=== PATIENT | female | born 1980 | race Caucasian/White ===

== ENCOUNTER 2020-10-12 17:15 | Emergency (ER) | payer MEDICARE, SELFPAY | END 2020-10-12 19:43 | disposition left against medical advice (07) | LOC: HO.ED 19:44 | PROVIDERS: Emergency Provider Emergency Medicine; PCP Nurse Practitioner Family | DX: N39.0 Urinary tract infection, site not specified (principal) ==

== ENCOUNTER 2024-11-01 14:31 | Emergency (ER) | payer OTHER, SELFPAY ==
[2024-11-01 14:40] VITALS: BP 105/79; BP 120/78; PULSE 77; PULSE 83; RESP 18; TEMP 36.6; O2SAT 100; BMI 41.0
--- NOTE | 2024-11-01 14:41 | ED_ITS ---
HPI - General Adult General Chief complaint: Allergic Reaction Stated complaint: ?ALLERGIC REACTION Time Seen by Provider: 11/01/24 14:41 History of Present Illness ED Provider: Olesya BARNES narrative: The patient is a 44-year-old woman who says that she woke up this morning with swelling and redness to the skin of her face. It is also very itchy. The patient says that she had a similar event 2 weeks ago. She happened to have a primary care doctor visit on the same day that she experienced these symptoms previously. She was treated with doxycycline and prednisone and improved. Her symptoms had completely resolved before they returned suddenly this morning for no apparent reason. She denies any new medications. She denies any new skin products or other household products that she might have been exposed to. She has no sense of intraoral swelling. No difficulty swallowing. No change in her voice. No shortness of breath. She does not feel that the redness or itchiness is present on any other part of her body except for the face. The patient later said that she had started a new medication, upadacitinib (Rinvoq) 3 days ago. Related Data Previous Rx's ?Medication ?Instructions ?Recorded famotidine 40 mg tablet 40 mg PO DAILY #10 tabs 11/01/24 loratadine 10 mg tablet 10 mg PO DAILY PRN allergic 11/01/24 symptoms #10 tabs lorazepam 1 mg tablet 1 mg PO BEDTIME PRN agitation #5 11/01/24 tabs prednisone 5 mg tablet 5 mg PO DIRECTED #78 tabs 11/01/24 Allergies Allergy/AdvReac Type Severity Reaction Status Date / Time latex [LATEX] Allergy Unknown UNKNOWN Verified 11/01/24 14:57 naproxen [NAPROXEN] Allergy Unknown NAUSEA & Verified 11/01/24 14:57 VOMITING SEAFOOD Allergy Unknown SWELLING Uncoded 11/01/24 14:57 Review of Systems 2 Review of Systems: Yes all other systems are reviewed and are negative PMFSH Social History Social History Advance Directives: No Advance Directives Information Provided: Yes Physical Exam ED Vital Signs: Vital Signs - 24 hr 11/01/24 14:40 11/01/24 15:06 11/01/24 16:37 Temperature 97.9 F 98.2 F Pulse Rate 77 65 68 Respiratory Rate 18 20 Blood Pressure 105/79 105/79 120/64 Pulse Oximetry 100 99 Oxygen Delivery Method Room Air Room Air BMI result Body Mass Index 41.0 Const Other: The patient is awake and alert. Her face is diffusely red and puffy. She seems somewhat uncomfortable and itchy. She has a normal mental status and does not seem in any respiratory difficulty. HENMT Other: The skin of the face is diffusely red and mildly puffy. There is no intraoral swelling. No swelling of the posterior pharynx. Airway looks clear. Eyes Other: There is some mild edema to the eyelids generally. The eyes themselves are unremarkable. Pupils are round equal, conjunctivae are clear, extraocular movements intact. Neck Other: There is no redness of the neck. No swelling to the neck. No stridor. She is moving her neck easily. Resp Effort & Inspection: normal respiratory effort Auscultation: clear to auscultation bilaterally Cardio Rate: regular rate Rhythm: regular rhythm Heart sounds: S1 normal heart sound present and S2 normal heart sound present Skin Other: There is a lot of diffuse redness to the skin of the face. The redness seems confined to the face. the skin of the remainder of the body is unremarkable. Neuro Other: The patient is awake and alert with a normal mental status. The face has diffuse redness and mild diffuse swelling but there was no facial asymmetry. Speech is clear. Eye movements are normal. She moves her extremities normally. She seems neurologically intact. Extrem Other: No swelling to the extremities Medications Administered Discontinued Medications Generic Name Dose Route Start Last Admin Trade Name Darrylq PRN Reason Stop Dose Admin Acetaminophen 975 mg 11/01/24 16:18 11/01/24 16:25 Acetaminophen 325 Mg Tablet PO 11/01/24 16:19 975 mg ONCE ONE Administration Diphenhydramine HCl 25 mg 11/01/24 15:55 11/01/24 16:04 Diphenhydramine Hcl 25 Mg Capsule PO 11/01/24 15:56 25 mg ONCE ONE Administration Epinephrine 0.3 mg 11/01/24 14:51 11/01/24 15:06 Epinephrine 1 Mg/Ml Vial IM 11/01/24 14:52 0.3 mg STAT STA Administration Famotidine 20 mg 11/01/24 15:55 11/01/24 16:04 Famotidine 20 Mg Tablet PO 11/01/24 15:56 20 mg ONCE ONE Administration Loratadine 10 mg 11/01/24 15:55 11/01/24 16:04 Loratadine 10 Mg Tablet PO 11/01/24 15:56 10 mg ONCE ONE Administration Prednisone 60 mg 11/01/24 15:55 11/01/24 16:03 Prednisone 20 Mg Tablet PO 11/01/24 15:56 60 mg ONCE ONE Administration Medical Decision Making Medical Decision Making [facility] Narrative: The patient is a 44-year-old woman who presents with the acute facial redness and itchiness that started this morning. She says that she had a similar episode 2 weeks ago and she was seen at her PCP's office. She was prescribed doxycycline and prednisone with improvement in her symptoms. She has also seen a biometrics specialist recently and was prescribed Rinvoq. She started this medicine 3 days ago. She had not taken this medication on the previous episode 2 weeks ago. I think her presentation today is most consistent with a an allergic phenomenon. She was given a trial of an IM dose of epinephrine but this did not seem to have much benefit. Given the itchiness component I think it is much more likely that this is an allergic reaction rather than an infection. I do not think there is necessarily a role for antibiotics. She will be discharged with a prescription for a long slow tapering dose of prednisone over 12 days. She will also be given prescriptions for loratadine and famotidine. She should take these daily. Also a small prescription for lorazepam for use at night if necessary for sleep. She should follow up with her biometrics specialist, Dr. Milton, and also with her PCP. If worse she should return to the emergency room. Discharge Plan Discharge Clinical Impression: Allergic reaction Patient Disposition: Home, Self-Care Additional Instructions: I have sent four prescriptions to the pharmacy. Please take the prednisone once a day. The prednisone dosing will be what we call a tapering dose. Tomorrow take 12 tablets, 5 mg each for a total of 60 mg. The next day take 11 tablets for 55 mg. The next day take 10 tablets. Continue to take 1 tablet less per day until done. You should also take loratadine once a day (this is an antihistamine). You should also take famotidine once a day ( this is a different kind of antihistamine ). I have also sent a prescription for lorazepam ( Ativan ) which you may use at bedtime if the itchiness prevents you from sleeping. This medication can make you drowsy. No driving on this medication. You may also take occasional [id number] Benadryl (diphenhydramine) if the itching is very severe. I would hold the Rinvoq while you are taking the prednisone and until you follow up with your biometrics specialist to discuss this further. Please call your dermatology office tomorrow morning to try to get a prompt follow up appointment for re-evaluation. Also contact your regular doctor's office in case you have any delay in getting into see your biometrics specialist again. Return to the emergency room if significantly worse. Prescriptions: New prednisone 5 mg tablet 5 mg PO DIRECTED Qty: 78 0RF Rx Instructions: take 12 tablets by mouth daily for 1 day, then take 11 tablets daily by mouth for 1 day, then take 10 tablets daily by mouth for 1 day, continue to take 1 tablet less per day until done. loratadine 10 mg tablet 10 mg PO DAILY PRN (Reason: allergic symptoms) Qty: 10 0RF famotidine 40 mg tablet 40 mg PO DAILY Qty: 10 0RF lorazepam 1 mg tablet 1 mg PO BEDTIME PRN (Reason: agitation) Qty: 5 0RF Referrals: Jose Milton MD [Physician] - ( facial allergic reaction) Yazmin Sommer NP [Primary Care Provider] - ( facial redness and swelling, presumably allergic reaction) Interventions: ED Discharge Assessment Last Done: 11/01/24 17:20 Print Language: Citizen Of [place]
[2024-11-01 15:06] VITALS: BP 105/79; PULSE 65
[2024-11-01] MEDS: EPINEPHrine 1 MG/ML VIAL 0.3 MG IM (15:06)
--- NOTE | 2024-11-01 15:15 | PC.NURSE ---
Patient notified this RN & Dr. Dacosta that she started a new medication 3 days ago, Rinvoq. at bedside. Given Epi 0.3mg to left deltoid. Placed on lead quality control technician, vitals stable. No acute distress.
[2024-11-01] MEDS: predniSONE 20 MG TABLET 60 MG PO (16:03)
[2024-11-01] MEDS: Famotidine 20 MG TABLET PO (16:04)
[2024-11-01] MEDS: Loratadine 10 MG TABLET PO (16:04)
[2024-11-01] MEDS: diphenhydrAMINE HCL 25 MG CAPSULE PO (16:04)
[2024-11-01] MEDS: Acetaminophen 325 MG TABLET 975 MG PO (16:25)
[2024-11-01 16:37] VITALS: BP 120/64; PULSE 68; RESP 20; TEMP 36.8; O2SAT 99
[2024-11-01 17:20] VITALS: BP 120/64; PULSE 68; RESP 20; TEMP 36.8; O2SAT 99
== END 2024-11-01 17:21 | disposition home or self-care (01) ==
PROVIDERS: Emergency Provider Emergency Medicine; PCP Nurse Practitioner Family
DX: L50.0 Allergic urticaria (principal)
CPT/HCPCS: 96372; 99284; J0171

== ENCOUNTER 2025-02-05 22:57 | Emergency (ER) | payer OTHER, SELFPAY ==
--- NOTE | 2025-02-05 | ECG_ITS ---
Test Reason : DIZZINESS Blood Pressure : */* mmHG Vent. Rate : 76 BPM Atrial Rate : 76 BPM P-R Int : 130 ms QRS Dur : 88 ms QT Int : 378 ms P-R-T Axes : 31 12 36 degrees QTcB Int : 425 ms Normal sinus rhythm Normal ECG No previous ECGs available Referred By: Generic ED Physician Electronically Signed By: JONNY CAMPOS
[2025-02-05 23:03] VITALS: BP 140/86; PULSE 84; O2SAT 97
[2025-02-05 23:11] VITALS: BP 120/70; PULSE 75; RESP 16; TEMP 36.9; O2SAT 96
[2025-02-05 23:13] VITALS: BMI 44.0
[2025-02-05 23:35] LABS: MANUAL DIFF FLAG NO
--- OUTSIDE RECORDS SUMMARY | 2025-02-05 23:36 | XMS_ITS | Clinical Summary ---
Author Organization [facility] Address [address] [place] [address] Phone Care Team Providers Care Billboard Installer Name Role Phone Srikanth Patel MD Primary Care Provider [phone] Allergies Active Allergy Reactions Criticality Noted Date Comments Latex 09/22/2024 Shellfish Derived 09/22/2024 Medications No known medications Surgical History Surgery Date Site/Laterality Comments SECTION 2014 PROCEDURE: [place] DELIV[place] ONLY Medical History Medical History Date Comments Asthma DX:Asthma; COMME NT: since young Eczema DX:Eczema; COMME NT: since young Family History Medical History Relation Name Comments Depression Mother Diabetes Mother Hypertension Mother Other: no CAD Other 1 Other: no CVA Other 2 Lung cancer Paternal Grandmother smoker Relation Name Status Comments Mother Other 1 Other 2 Paternal Grandmother Social History Tobacco Use Types Packs/Day Years Used Date Smoking Tobacco: Every Day Cigarettes Smokeless Tobacco: Never Alcohol Use Standard Drinks/Week Comments No 0 (1 standard drink = 0.6 oz pur e alcohol) Comments Unknown Sex and Gender Information Value Date Recorded Sex Assigned at Female 09/22/2024 10:49 PM EST Legal Sex Female 4:55 AM EST Gender Identity Female 09/22/2024 10:49 PM EST Sexual Orientation Choose not to disclose 2024 10:49 PM EST Obstetrics History Last Filed Vital Signs Vital Sign Reading Time Taken Comments Blood Pressure 116/70 09/23/2024 12:52 AM EST Pulse 75 09/23/2024 12:52 AM EST Temperature 37.1 ??C (98.8 ??F) 09/23/2024 12:[address] Respiratory Rate 18 09/23/2024 12:52 AM EST Oxygen Saturation 100% 09/23/2024 12:52 AM EST Inhaled Oxygen Concentration - - Weight 89.4 kg (197 lb) 09/22/2024 6:12 PM EST Height 149.9 cm (4' 11 ) 09/22/2024 6:12 PM EST Body Mass Index 39.79 09/22/2024 6:12 PM EST Plan of Treatment Health Maintenance Due Date Last Done Comments Breast Cancer Screening 1979 Hepatitis B Vaccines (1 of 3 - 19+ 3-dose series) 1998 Pneumococcal Vaccine: Pediatrics (0 to 5 Years) and At-Risk Patients (6 to 64 Years) (1 of 2 - PCV) 1998 Cholesterol Screening (Lipid Panel) 08/05/2022 Colorectal Cancer Screening: Colonoscopy 08/05/2022 Depression Screening 08/05/2022 HIV Screening 08/05/2022 Hepatitis C Screening 08/05/2022 Medicare Annual Wellness Visit 08/05/2022 Social Influencers of Health Screening 08/05/2022 Cervical Cancer Screening: Pap Smear 03/18/2023 03/18/2020 COVID-19 Vaccine ( season) 2024 Influenza Vaccine (Season Ended) 2025 08/21/2023, 06/28/2020, 06/18/2019, Additional history exists DTaP,Tdap,and Td Vaccines (5 - Td or Tdap) 02/22/2030 02/23/2020, 02/21/2018, 03/15/2015, Additional history exists HIB Vaccines Aged Out No longer eligi ble based on patient's age to complete this topic HPV Vaccines Aged Out No longer eligi ble based on patient's age to complete this topic Hepatitis A Vaccines Aged Out No long er eligible based on patient's age to complete this topic IPV Vaccines Aged Out No longer eligi ble based on patient's age to complete this topic MMR Vaccines Aged Out No longer eligi ble based on patient's age to complete this topic Meningococcal ACWY Vaccine Aged Out N o longer eligible based on patient's age to complete this topic Meningococcal B Vaccine Aged Out No l onger eligible based on patient's age to complete this topic RSV Immunization Patients Under 20 months Aged Out No longer eligible based on patient's age to complete this topic Varicella Vaccines Aged Out No longer eligible based on patient's age to complete this topic Procedures Procedure Name Priority Date/Time Associated Diagnosis Comments PAP SMEAR Routine 03/18/2020 from Last 3 Months or Most Recently Relevant to Health Maintenance Results * Pap smear (03/18/2020) 03/18/2020 Narrative HISTORICAL TESTING LAB RESULTING AGENCY - 03/24/2020 11:46 AM EDT [id number] THINPREP PAP, IMAGED: ATYPICAL SQUAMOUS CELLS OF UNDETERMINED SIGNIFICANCE (ASCUS) . ABUNDANT BLOOD PRESENT. ARNOL VARGAS(ASCP) (CASE SCREENED 03 22 2020) KACIE ABRAMS M.D. , PATHOLOGIST (CASE ELECTRONICALLY SIGNED 03 23 2020) RESULT OF APTIMA HIGH RISK HPV ASSAY: HIGH RISK HPV: ??NEGATIVE (SEROTYPES 16,18,31,33,35,39,45,51,52,56,58,59,66,68) COMPLETED ON 2020-03-21 ADEQUACY: SATISFACTORY ENDOCERVICAL/TRANSFORMATION ZONE COMPONENT PRESENT. SOURCE: THINPREP PAP HPV ANY DX: ??REFLEX 16 AND 18, CERVICAL, IMAGED CLINICAL INFORMATION: HPV ANY DIAGNOSIS. HORMONES, PAP HX NEG, Z12.4 Brenda DANG LAB CYTOLOGY ORDERABLES Final R esult HISTORICAL TESTING LAB RESULTING AGENCY from Last 3 Months or Most Recently Relevant to Health Maintenance Insurance [facility] MEDICARE Member Subscriber Plan / Payer (Ef fective 2021-Present) Name:Mauricio Carson Relation to Subscriber:Self Name:Mauricio Carson Payer ID:[id number] Group ID:[id number] Type:Not on file Address: [address] [place] [address] Care Teams Billboard Installer Relationship Specialty Start Date End Date Srikanth Patel MD [address] [place] [address], [phone] PCP - General 07/31/23
[2025-02-05 23:37] LABS: Basophils Absolute Auto 0.1 X10*3/uL (0.0-0.2); Basophils Percent Auto 0.7 % (0-2); Eosinophils Absolute Auto 0.2 X10*3/uL (0.0-0.4); Eosinophils Percent Auto 2.5 % (0-4); Hematocrit 38.4 % (37.0-47.0); Hemoglobin 13.3 g/dl (12.0-16.0); Imm Gran Abs Auto 0.15 X10*3/uL (0.00-0.03); Lymphocytes Absolute Auto 3.1 X10*3/uL (1.2-4.9); Lymphocytes Percent Auto 40.9 % (20-40); Mean Corpuscular HGB Conc 34.6 g/dl (31.0-35.0); Mean Corpuscular Hemoglobin 28.9 pg (27.0-33.0); Mean Corpuscular Volume 83.3 fL (80.0-98.0); Mean Platelet Volume 8.6 fL (9.4-12.3); Monocytes Absolute Auto 0.7 X10*3/uL (0.1-1.2); Monocytes Percent Auto 9.1 % (2-11); Neutrophils Absolute Auto 3.4 x10*3/uL (2.0-8.3); Neutrophils Percent Auto 44.8 % (45-73); Platelet Count 329 X10*3/uL (160-400); Red Blood Count 4.61 X10*6/uL (4.20-5.50); Red Cell Distribution Width 13.3 % (11.0-16.0); White Blood Count 7.5 X10*3/uL (4.8-10.8)
[2025-02-06 00:03] LABS: Albumin Level 4.6 g/dL (3.5-5.0); Alkaline Phosphatase 65 U/L (39-117); Anion Gap 12 (12-20); Aspartate Amino Transferase 35 U/L (5-31); Blood Urea Nitrogen 17 mg/dL (9-16); Calcium 9.6 mg/dL (8.4-10.2); Carbon Dioxide 25 mmol/L (22-29); Chloride 107 mmol/L (96-108); Estimated Glomerular Filt Rate 53; Glucose Random 90 mg/dL (60-115); Potassium 3.9 mmol/L (3.3-5.1); Sodium 140 mmol/L (135-145); Total Protein 7.2 g/dL (6.5-8.0); Troponin-I High Sensitivity < 2.7 ng/L (<3.5-17.0)
[2025-02-06 00:22] LABS: Alanine Aminotransferase 56 U/L (0-31); Bilirubin Total 0.5 mg/dL (0.0-1.0)
[2025-02-06 00:38] VITALS: BP 114/72; BP 94/60; PULSE 68; PULSE 80
[2025-02-06 00:39] VITALS: BP 95/64; PULSE 83
[2025-02-06 02:32] VITALS: BP 109/58; PULSE 65; RESP 16; TEMP 36.1; O2SAT 97
[2025-02-06 03:14] LABS: Appearance Urine Hazy; Color Urine Yellow; Glucose Urine UA Negative (Negative); Leukocyte Esterase Urine Negative (Negative); Nitrite Urine Negative (Negative); Specific Gravity - Urine >= 1.030 (1.005-1.025); Urine Blood Negative (Negative); Urine Ketones Negative (Negative); Urine Protein Trace mg/dL (Neg-Trace)
[2025-02-06 03:17] LABS: UPreg QC Valid YES; Urine Pregnancy NEGATIVE (NEGATIVE)
[2025-02-06 04:10] LABS: Bacteria Urine 1+ (None Seen); Hyaline Casts Urine 0-2 /LPF (0-2); RBC Urine 0-2 /HPF (0-2); WBC Urine 0-5 /HPF (0-5)
== END 2025-02-06 03:32 | disposition left against medical advice (07) ==
PROVIDERS: Emergency Provider Internal Medicine
DX: R42 Dizziness and giddiness (principal); R11.0 Nausea; Z79.899 Other long term (current) drug therapy
CPT/HCPCS: 36415; 80053; 81001; 81025; 84484; 85025; 93005; 99283; 99284

== ENCOUNTER → 2025-02-05 23:19 | Outpatient (BNV) | payer OTHER, SELFPAY | PROVIDERS: Emergency Provider Internal Medicine; Visit Provider Internal Medicine | DX: R42 Dizziness and giddiness (principal) | CPT/HCPCS: 93010 ==

== ENCOUNTER 2025-06-21 03:03 | Emergency (ER) | payer OTHER, SELFPAY ==
--- OUTSIDE RECORDS SUMMARY | 2024-11-09 09:00 | XMS_ITS ---
Author Organization [facility] Address [address] [place] [address] Care Team Providers Care Religious Healer Name Role Phone ZZArchive - DO NOT USE, Housing Application Prim lindsay Care Provider Unavailable Vicki Pichardo Unavailable [phone] Encounters Encounter Location Date Provider Diagnosis [facility] [address] [place] [phone] 11/09/2024 Vicki Pichardo Plan Of Treatment No Information Progress Notes * Mauricio CARSONDOB:1979 (45 yo F)Acc No.[id number]:11/09/2024 Case Management Patient: Kamaljit ANAHY Mauricio Provider: Celi Pichardo :1980 A ge:44 Y S ex:Female Date:11/09/2024 Address:[address] [place], [place] [phone] Pcp:Housing Application ZZAr chive - DO NOT USE Subjective: * Chief Complaints: * * Medical History: Objective: Assessment: Plan: * Treatment: * Images: Billing Information: * Visit Code: * Procedure Codes: Care Plan Details* * Electronic signature of Hector Pichardo on 06/21/2025 at 04:04 AM EDT Sign off status: Pending * Provider: Celi Pichardo Date: 0 11/09/2024 Generated for Joel appiah/Jono/Bradley on: 1 04:04 AM EDT
--- OUTSIDE RECORDS SUMMARY | 2025-02-09 06:00 | XMS_ITS ---
Author Organization [facility] Address [address] [place] [address] Care Team Providers Care Plastic Sheets Supervisor Name Role Phone ZZArchive - DO NOT USE, Housing Application Prim lindsay Care Provider Unavailable Vicki Pichardo Unavailable Encounters Encounter Location Date Provider Diagnosis [facility] [address] [place] [phone] 02/09/2025 Vicki Pichardo Plan Of Treatment No Information Progress Notes * Mauricio CARSONDOB:1979 (45 yo F)Acc No.[id number]:02/09/2025 Case Management Patient: Kamaljit ANAHY Mauricio Provider: Celi Pichardo :1980 A ge:44 Y S ex:Female Date:02/09/2025 Address:[address] [place], [place] [phone] Pcp:Housing Application ZZAr chive - DO NOT USE Subjective: * Chief Complaints: * * Medical History: Objective: Assessment: Plan: * Treatment: * Images: Billing Information: * Visit Code: * Procedure Codes: Care Plan Details* * Electronic signature of Hector Pichardo on 06/21/2025 at 04:04 AM EDT Sign off status: Pending * Provider: Celi Pichardo Date: 0 02/09/2025 Generated for Joel appiah/Jono/Bradley on: 04:04 AM EDT
--- NOTE | ~2025-06-21 | XR_ITS ---
EXAMINATION: XR KNEE, RIGHT CLINICAL INFORMATION: acute knee pain COMPARISON: None available. TECHNIQUE: Four views of the right knee. FINDINGS: The tricompartment joint space is maintained normal. No bony erosive changes, loose bodies or joint effusion seen. No visible acute fracture or dislocation. XR/XR knee RT 4V IMPRESSION: Unremarkable right knee exam. Electronically signed by: Mark Mcclendon MD 06/21/2025 05:36 AM EDT
[2025-06-21 03:06] VITALS: BP 116/74; PULSE 90; O2SAT 98
[2025-06-21 03:07] VITALS: BP 124/63; PULSE 88; RESP 18; TEMP 36.8; O2SAT 99; BMI 45.6
[2025-06-21 03:43] LABS: MANUAL DIFF FLAG NO
[2025-06-21 03:44] LABS: Hematocrit 41.5 % (37.0-47.0); Hemoglobin 13.8 g/dl (12.0-16.0); Imm Gran Abs Auto 0.12 X10*3/uL (0.00-0.03); Imm Gran Pct Auto 1.1 % (0.0-0.4); Lymphocytes Absolute Auto 2.4 X10*3/uL (1.2-4.9); Mean Corpuscular HGB Conc 33.3 g/dl (31.0-35.0); Mean Corpuscular Hemoglobin 28.5 pg (27.0-33.0); Mean Corpuscular Volume 85.7 fL (80.0-98.0); NRBC Abs Auto 0.000 X10*3/uL (0.0-0.012); NRBC Pct Auto 0.0 /100WBC (0.0-0.2); Platelet Count 332 X10*3/uL (160-400); Red Blood Count 4.84 X10*6/uL (4.20-5.50); White Blood Count 11.3 X10*3/uL (4.8-10.8)
[2025-06-21 04:04] LABS: COVID-19 Test Negative (Negative); IDNOW Serial# 152EDE1D; IDNOW Serial# 16C4AD1C; Influenza B2 Negative (Negative)
--- OUTSIDE RECORDS SUMMARY | 2025-06-21 04:04 | XMS_ITS | Clinical Summary ---
Author Organization [facility] Address [address] [place] [address] Care Team Providers Care Human Resources District Manager Name Role Phone Unavailable Primary Care Provider Unavailabl e Social History Tobacco Use Types Packs/Day Years Used Date Smoking Tobacco: Never Assessed Sex and Gender Information Value Date Recorded Sex Assigned at Not on file Gender Identity Not on file Sexual Orientation Not on file Job Start Date Occupation Industry Not on file Not on file Not on file Plan of Treatment Not on file
--- OUTSIDE RECORDS SUMMARY | 2025-06-21 04:04 | XMS_ITS | Clinical Summary ---
Author Organization [facility] Address [address] [place] [address] Phone Care Team Providers Care Long Chain Quiller Tender Name Role Phone Srikanth Patel MD Primary Care Provider [phone] Allergies Active Allergy Reactions Criticality Noted Date Comments Latex 09/22/2024 Shellfish Derived 09/22/2024 Medications No known medications Surgical History Surgery Date Site/Laterality Comments SECTION 2014 PROCEDURE: [place] DELIVERY ONLY Medical History Medical History Date [...] 74 09/23/2024 12:52 AM EST Temperature 37.1 C (98.8 F) 09/23/2024 12:52 AM EST Respiratory Rate 18 09/23/2024 12:52 AM EST Oxygen Saturation 100% 09/23/2024 12:52 AM EST Inhaled Oxygen Concentration - - Weight 89.4 kg (197 lb) 09/22/2024 6:12 PM EST Height 149.9 cm (4' 11 ) 09/22/2024 6:12 PM EST Body Mass Index 39.79 09/22/2024 6:12 PM EST Plan of Treatment Health Maintenance Due Date Last Done Comments Breast Cancer Screening 1979 Colorectal Cancer Screening: Colonoscopy 1979 Hepatitis B Vaccines (1 of 3 - 19+ 3-dose series) 1998 Pneumococcal Vaccine: Pediatrics (0 to 5 Years) and At-Risk Patients (6 to 49 Years) (1 of 2 - PCV) 1998 Cholesterol Screening (Lipid Panel) 08/05/2022 HIV Screening 08/05/2022 Hepatitis C Screening 08/05/2022 Medicare Annual Wellness Visit 08/05/2022 Social Influencers of Health Screening 08/05/2022 Cervical Cancer Screening: Pap Smear 03/18/2023 03/18/2020 Depression Screening 09/02/2024 COVID-19 Vaccine ( season) 2025 Influenza Vaccine (#1) 2025 3, 06/28/2020, 06/18/2019, Additional history exists DTaP,Tdap,and Td Vaccines (5 - Td or Tdap) 02/22/2030 02/23/2020, 02/21/2018, 03/15/2015, Additional history exists RSV Immunization Adult Patients (1 - 1-dose 75+ series) 2054 HIB Vaccines Aged Out No longer eligi [...] RESULTING AGENCY - 03/24/2020 11:46 AM EDT [id number] THINPREP PAP, IMAGED: ATYPICAL SQUAMOUS CELLS OF UNDETERMINED SIGNIFICANCE (ASCUS) . ABUNDANT BLOOD PRESENT. ARNOL VARGAS(ASCP) (CASE SCREENED 03 22 2020) KACIE ABRAMS M.D. , PATHOLOGIST (CASE ELECTRONICALLY SIGNED 03 23 2020) RESULT OF APTIMA HIGH RISK HPV ASSAY: HIGH RISK HPV: NEGATIVE (SEROTYPES 16,18,31,33,35,39,45,51,52,56,58,59,66,68) COMPLETED ON 2020-03-21 ADEQUACY: SATISFACTORY ENDOCERVICAL/TRANSFORMATION ZONE COMPONENT PRESENT. SOURCE: THINPREP PAP HPV ANY DX: REFLEX 16 AND 18, CERVICAL, IMAGED CLINICAL INFORMATION: HPV ANY DIAGNOSIS. HORMONES, PAP HX NEG, Z12.4 Brenda DANG LAB CYTOLOGY ORDERABLES Final R esult HISTORICAL TESTING LAB RESULTING AGENCY from Last 3 Months or Most Recently Relevant to Health Maintenance Insurance [facility] MEDICARE Member Subscriber Plan / Payer (Ef fective 2021-Present) Name:Mauricio Carson Relation to Subscriber:Self Name:Mauricio Carson Payer ID:[id number] Group ID:[id number] Type:Not on file Address: [address] [place] [address] Care Teams Long Chain Quiller Tender Relationship Specialty Start Date End Date Srikanth Patel MD [address] [place] [address], [phone] PCP - General 07/31/23
--- OUTSIDE RECORDS SUMMARY | 2025-06-21 04:04 | XMS_ITS | Patient Health Record ---
Author Organization [facility] Address [address] [place] [address] Care Team Providers Care Burn Out Scarfing Operator Name Role Phone ZZArchive - DO NOT USE, Housing Application Prim pingree Care Provider Unavailable Vicki Pichardo Unavailable Reason For Referral No Information Encounters Encounter Location Date Provider Diagnosis [facility] [address] [place] [phone] 11/06/2024 Vicki Pichardo [facility] [address] [place] [phone] 02/01/2025 Vicki Pichardo Plan Of Treatment No Information Insurance Providers Payer Name Payer Address Payer Phone Subscriber Number Group Number Insured Name Patient Relationship to Insured Coverage Start Date Coverage End Date [facility] [address] [place] [phone] [id number] Mauricio Melvin Self - patient is the insured 5 [phone]
[2025-06-21 04:11] LABS: Alanine Aminotransferase 49 U/L (0-31); Albumin Level 4.4 g/dL (3.5-5.0); Alkaline Phosphatase 66 U/L (39-117); Anion Gap 15 (12-20); Aspartate Amino Transferase 30 U/L (5-31); Blood Urea Nitrogen 13 mg/dL (9-16); Calcium 8.7 mg/dL (8.4-10.2); Carbon Dioxide 19 mmol/L (22-29); Chloride 110 mmol/L (96-108); Creatinine Clr Calc Pharmacy 132.5; Estimated Glomerular Filt Rate > 60; Potassium 3.9 mmol/L (3.3-5.1); Sodium 140 mmol/L (135-145); Total Protein 6.9 g/dL (6.5-8.0)
--- NOTE | 2025-06-21 05:32 | ED.EXTPRO ---
HPI - Extremity Problem General Chief complaint: Extremity Problem Stated complaint: R knee pain Time Seen by Provider: 06/21/25 03:22 Source: patient, family and EMS Mode of arrival: EMS Limitations: no limitations History of Present Illness ED Provider: Dr. Noemi Subramanian HPI Narrative: 45-year-old female with a history of asthma presenting with right knee pain, nausea and vomiting ongoing for the last 4 days or so. Patient states that she has been having progressively worsening right knee pain without any significant injury. Describes a sharp pain on the anteromedial aspect of the knee. No significant swelling. No skin changes overlying the knee. No reported fever. She does admit to vomiting that began today. No associated diarrhea or fever. She did have a sick contact in a nephew that was also vomiting recently. Denies chest pain or difficulty breathing. No long distance travel, oral contraceptive use. Related Data Previous Rx's ?Medication ?Instructions ?Recorded famotidine 40 mg tablet 40 mg PO DAILY #10 tabs 11/01/24 loratadine 10 mg tablet 10 mg PO DAILY PRN allergic 11/01/24 symptoms #10 tabs lorazepam 1 mg tablet 1 mg PO BEDTIME PRN agitation #5 11/01/24 tabs prednisone 5 mg tablet 5 mg PO DIRECTED #78 tabs 11/01/24 gabapentin 300 mg capsule 300 mg PO TID #14 caps 06/21/25 methylprednisolone 4 mg tablets in 4 mg PO DAILY #21 ea 06/21/25 a dose pack (Medrol ([place])) ondansetron 4 mg disintegrating 4 mg PO Q8H PRN nausea and 06/21/25 tablet vomiting #10 tabs Allergies Allergy/AdvReac Type Severity Reaction Status Date / Time latex (LATEX) Allergy Unknown UNKNOWN Verified 06/21/25 03:17 naproxen (NAPROXEN) Allergy Unknown NAUSEA & Verified 06/21/25 03:17 VOMITING SEAFOOD Allergy Unknown SWELLING Uncoded 06/21/25 03:17 Review of Systems Review of Systems: as per HPI, full review of systems performed and negative but for the above mentioned pertinent positives and negatives. [facility] Social History Social History Advance Directives: No Advance Directives Information Provided: No Do you have a plan to hurt others: No Plan Physical Exam Exam: Exam: GENERAL: Ill-Appearing, appears uncomfortable. SKIN: Normal skin color for ethnicity, warm, dry, no rashes noted. HEENT:? Normocephalic, atraumatic, no stridor, dry mucous membranes, dentition intact, EOMI. NECK: Soft, supple, full ROM, midline structures nontender, no step-offs, no deformities, no lymphadenopathy. CHEST: Heart regular tachycardia, no murmurs, symmetric chest rise and fall. PULMONARY: Clear to auscultation bilaterally, diminished at the bases, no labored breathing, no wheezes/rhales/rhonchi. ABDOMINAL: Soft, nondistended, nontender, positive bowel sounds in all quadrants. : Deferred. MUSCULOSKELETAL: Normal tone, limited range of motion in the right knee secondary to pain, no joint effusion, no overlying skin changes, neurovascularly intact distally, no deformities, no peripheral edema. NEURO: Alert and oriented x3, CN II through XII intact, equal strength and sensation bilateral upper and lower extremities, no focal neurologic deficits.? PSYCHIATRIC: Flat affect, fluid speech, good eye contact and appropriate demeanor. Vital Signs: Vital Signs: Last Vital Signs Temp 98.3 F 06/21/25 06:45 Pulse 67 06/21/25 06:45 Resp 16 06/21/25 06:45 BP 110/42 L 06/21/25 06:45 Pulse Ox 99 06/21/25 06:45 O2 Del Method Room Air 06/21/25 06:45 BMI result Body Mass Index 45.6 Medications Administered Discontinued Medications Generic Name Dose Route Start Last Admin Trade Name Freq PRN Reason Stop Dose Admin Acetaminophen 975 mg 06/21/25 03:24 06/21/25 03:49 Acetaminophen 325 Mg Tablet PO 06/21/25 03:25 975 mg ONCE ONE Administration Gabapentin 300 mg 06/21/25 05:35 06/21/25 06:41 Gabapentin 300 Mg Capsule PO 06/21/25 05:36 300 mg ONCE ONE Administration Ondansetron HCl 4 mg 06/21/25 03:24 06/21/25 03:48 Ondansetron Odt 4 Mg Tab.Rapdis TRANSLINGU 06/21/25 03:25 4 mg ONCE ONE Administration Medical Decision Making Medical Decision Making MDM Narrative: Patient presents today with musculoskeletal pain. Differential diagnosis includes fracture, soft tissue contusion, ligamentous injury, tendon injury, infection, laceration, among others. Patient is neurovascularly intact upon arrival to the emergency department. Based on physical exam, appropriate imaging was ordered. Patient has no evidence of bony injury on x-ray. Her clinical picture is most consistent with a knee sprain. She has no joint effusion on my exam and no skin changes overlying the knee. We will provide her with a knee immobilizer. She does not want to use crutches and has a walker at home she is going to use. Medicated with Tylenol and gabapentin. She is also having some vomiting which I suspect is the start of a viral gastroenteritis given sick contacts with similar symptoms. Given Zofran which helped. We will discharge home with the same. Plan for discharge home with gabapentin and Medrol Dosepak. Discussed importance of follow up as well as strict return precautions. Discharged home in stable condition. Differential Diagnosis Differential Diagnoses: The differential diagnosis associated with the presentation includes (As above) Lab Data MDM Lab Attestation statement: I reviewed the patient's lab results. 06/21/25 03:38 06/21/25 03:38 Labs: Lab Results 06/21/25 Range/Units 03:38 WBC 11.3 H (4.8-10.8) X10*3/uL RBC 4.84 (4.20-5.50) X10*6/uL Hgb 13.8 (12.0-16.0) g/dl Hct 41.5 (37.0-47.0) % MCV 85.7 (80.0-98.0) fL MCH 28.5 (27.0-33.0) pg MCHC 33.3 (31.0-35.0) g/dl RDW 12.9 (11.0-16.0) % Plt Count 332 (160-400) X10*3/uL MPV 8.7 L (9.4-12.3) fL Immature Gran % (Auto) 1.1 H (0.0-0.4) % Neut % (Auto) 69.5 (45-73) % Lymph % (Auto) 20.9 (20-40) % Kern % (Auto) 7.4 (2-11) % Eos % (Auto) 0.6 (0-4) % Baso % (Auto) 0.5 (0-2) % Lymph # (Auto) 2.4 (1.2-4.9) X10*3/uL Kern # (Auto) 0.8 (0.1-1.2) X10*3/uL Eos # (Auto) 0.1 (0.0-0.4) X10*3/uL Baso # (Auto) 0.1 (0.0-0.2) X10*3/uL Abs Immat Gran (auto) 0.12 H (0.00-0.03) X10*3/uL Absolute Neuts (auto) 7.8 (2.0-8.3) x10*3/uL Absolute Nucleated RBC 0.000 (0.0-0.012) X10*3/uL Nucleated RBC % (auto) 0.0 (0.0-0.2) /100WBC ESR 2 (0-20) MM/HR Sodium 140 (135-145) mmol/L Potassium 3.9 (3.3-5.1) mmol/L Chloride 110 H (96-108) mmol/L Carbon Dioxide 19 L (22-29) mmol/L Anion Gap 15 (12-20) BUN 13 (9-16) mg/dL Creatinine 0.56 (0.5-1.4) mg/dL Estim Creat Clear Calc 132.5 Estimated GFR > 60 Random Glucose 109 (60-115) mg/dL Calcium 8.7 D (8.4-10.2) mg/dL Total Bilirubin 0.4 (0.0-1.0) mg/dL AST 30 (5-31) U/L ALT 49 H (0-31) U/L Alkaline Phosphatase 66 (39-117) U/L C-Reactive Protein < 0.10 (< or = 0.50) mg/dL Total Protein 6.9 (6.5-8.0) g/dL Albumin 4.4 (3.5-5.0) g/dL Beta HCG, Quant < 2 mIU/mL COVID-19 (VANGIE) Negative (Negative) COVID-19 Clin Com See Note Influenza Type A (ADELE) Negative (Negative) Influenza Type B (ADELE) Negative (Negative) Influenza A & B Note See Note Independent Interpretation I performed an independent interpretation of an: Plain X-Ray Interpretation: No significant bony abnormality seen on x-ray of the right knee, no joint effusion Radiology Impression Discussion of test interpretation with radiology: I have reviewed the radiologist's reading. Independent Historian Clinical information obtained from an independent historian. History obtained from or confirmed by: Spouse and EMS Prescription Management I considered prescription management with: Pain Medication and Other (Antiemetics) Chronic Conditions Patient?s care impacted by: Other (Asthma) Discharge Plan Discharge Clinical Impression: Right knee sprain, Acute nausea with nonbilious vomiting Patient Disposition: Home, Self-Care Instructions: Knee Sprain (ED) Additional Instructions: Use ondansetron tabs for nausea. Wash your hands regularly as the stomach flu is very contagious. Use gabapentin as needed for nerve pain in your knee. This medication can make you drowsy so do not drive while using it. Take the Medrol Dosepak until the course is completed. Do not stop this medication early if you start to feel better. Use the knee immobilizer for support. Do not drive with a knee immobilizer. Take it off and then put it back on when you are getting out of the car. Return to the emergency department with any new or worsening symptoms including: Worsening pain despite medications, fevers greater than 100?, redness that tracks away from your knee, chest pain, difficulty breathing, any new symptom that concerns you. Call 911 with any medical emergency. Prescriptions: New gabapentin 300 mg capsule 300 mg PO TID Qty: 14 0RF methylprednisolone [Medrol ([place])] 4 mg tablets,dose pack 4 mg PO DAILY Qty: 21 0RF ondansetron 4 mg tablet,disintegrating 4 mg PO Q8H PRN (Reason: nausea and vomiting) Qty: 10 0RF No Action prednisone 5 mg tablet 5 mg PO DIRECTED Qty: 78 0RF Rx Instructions: take 12 tablets by mouth daily for 1 day, then take 11 tablets daily by mouth for 1 day, then take 10 tablets daily by mouth for 1 day, continue to take 1 tablet less per day until done. loratadine 10 mg tablet 10 mg PO DAILY PRN (Reason: allergic symptoms) Qty: 10 0RF famotidine 40 mg tablet 40 mg PO DAILY Qty: 10 0RF lorazepam 1 mg tablet 1 mg PO BEDTIME PRN (Reason: agitation) Qty: 5 0RF Ref[place]: [facility] [place] [Provider Group, Orthopedics] Clinical Impression: Right knee sprain Interventions: ED Discharge Assessment Last Done: 06/21/25 06:45 Discharge Date/Time: 06/21/25 06:45 Print Language: Czech
[2025-06-21 06:45] VITALS: BP 110/42; PULSE 67; RESP 16; TEMP 36.8; O2SAT 99
--- NOTE | 2025-06-21 07:06 | PC.NURSE ---
after d/c knee immobilizer found on stretcher, attempt to call patients cell phone and no answer.
== END 2025-06-21 06:45 | disposition home or self-care (01) ==
PROVIDERS: Emergency Provider Emergency Medicine
DX: S83.91XA Sprain of unspecified site of right knee, initial encounter (principal); X58.XXXA Exposure to other specified factors, initial encounter; Y93.9 Activity, unspecified; Y92.9 Unspecified place or not applicable; R11.2 Nausea with vomiting, unspecified; Z03.818 Encounter for observation for suspected exposure to other biological agents ruled out
CPT/HCPCS: 36415; 73564; 80053; 84702; 85025; 85652; 86140; 87502; 87635; 99283

== ENCOUNTER → 2025-06-21 03:23 | Outpatient (BNV) | payer OTHER, SELFPAY | PROVIDERS: Emergency Provider Emergency Medicine; Visit Provider Radiology Diagnostic Radiology | DX: M25.561 Pain in right knee (principal) | CPT/HCPCS: 73564 ==